=== PATIENT | female | born 1990 | race Caucasian/White ===

== ENCOUNTER 2017-04-07 05:45 | Day surgery (SDC) | payer BC, OTHER ==
[2017-04-04 15:50] VITALS: BMI 19.3
[2017-04-07 07:48] LABS: GLUCOSE,RANDOM 71 mg/dL (74-106)
[2017-04-07 07:49] LABS: ANION GAP 5 (8-16); CALCIUM 8.8 mg/dL (8.5-10.1); CO2 30 mmol/L (21-32); CREATININE 0.8 mg/dL (0.55-1.02)
[2017-04-07 07:50] LABS: ALK PHOS 62 U/L (45-117); BILIRUBIN,TOTAL 0.3 mg/dL (0.2-1.0); SGOT/AST 13 U/L (15-37); SGPT/ALT 27 U/L (12-78)
[2017-04-07 07:52] LABS: EOSINOPHIL 2.5 % (0-4.5); MCH 34.5 pg (25.7-33.7); MEAN CELL VOLUME 98.6 fl (80-96); MEAN PLT VOLUME 7.3 fl (7.5-11.1); NEUTROPHILS 32.6 % (42.8-82.8); PLATELET COUNT 267 K/MM3 (134-434); RDW 12.3 % (11.6-15.6); WHITE BLOOD COUNT 5.2 K/mm3 (4.0-10.0)
--- NOTE | 2017-04-07 07:54 | HP ---
Admitting History and Physical - Admission History of Present Illness: patient is a 26 y/o female with a past medical history of depression and anxiety. She reports struggling with depression within the past 15 years. Patient presents for ect, she has received in the past her last ECT was last week. She does report a recent admission to [facility] for depression in which she received 6 ects. Patient does report an improvement in depressive symptoms since starting ect. she denies any suicidal or homicidal ideation, visual or auditory hallucinations. She denies any recent illnesses. 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 Medications - Allergies Allergies/Adverse Reactions: Allergies Allergy/AdvReac Type Severity Reaction Status Date / Time Sulfa (Sulfonamide Allergy Severe Rash Verified 04/07/17 06:19 Antibiotics) - Home Medications Home Medications: Ambulatory Orders Acetylcysteine [V-Kznbzg-w-Cysteine] 600 mg PO DAILY 04/04/17 Brexpiprazole [Rexulti] 0.5 mg PO DAILY 04/04/17 Bupropion HCl [Wellbutrin Xl] 300 mg PO DAILY 04/04/17 Docusate Sodium [Colace -] 100 mg PO DAILY 04/04/17 Levomefolate/Algal Oil [Deplin-Algal Oil 15 mg Capsule] 1 each PO DAILY Lorazepam 1 mg PO DAILY PRN 04/04/17 Quetiapine Fumarate [Seroquel -] 50 mg PO HS 04/04/17 Family Disease History - Family Disease History Family Disease History: Heart Disease: Grandparent, Other: Father (hypertension ) Other Family History: cousins-->anxiety and depression Review of Systems - Review of Systems Constitutional: reports: No Symptoms Eyes: reports: No Symptoms HENT: reports: No Symptoms Neck: reports: No Symptoms Cardiovascular: reports: No Symptoms Respiratory: reports: No Symptoms Gastrointestinal: reports: No Symptoms Genitourinary: reports: No Symptoms Breasts: reports: No Symptoms Reported Musculoskeletal: reports: No Symptoms Integumentary: reports: No Symptoms Neurological: reports: No Symptoms Endocrine: reports: No Symptoms Hematology/Lymphatic: reports: No Symptoms Psychiatric: reports: Anxiety, Depression Physical Examination Vital Signs: Vital Signs Temperature 97.5 F L 04/07/17 06:20 Pulse Rate 56 L 04/07/17 06:20 Respiratory Rate 16 04/07/17 06:20 Blood Pressure 91/54 04/07/17 06:20 O2 Sat by Pulse Oximetry (%) 100 04/07/17 06:20 Constitutional: Yes: Well Nourished, No Distress, Calm Eyes: Yes: WNL, Conjunctiva Clear, EOM Intact HENT: Yes: WNL, Atraumatic, Normocephalic Neck: Yes: WNL, Supple, Trachea Midline Cardiovascular: Yes: WNL, Regular Rate and Rhythm, S1, S2 Respiratory: Yes: WNL, Regular, CTA Bilaterally Gastrointestinal: Yes: WNL, Normal Bowel Sounds, Soft ...Rectal Exam: Yes: Deferred Renal/: Yes: WNL Breast(s): Yes: WNL Musculoskeletal: Yes: WNL Extremities: Yes: WNL Edema: No Peripheral Pulses WNL: Yes Peripheral Pulses: Left Radial: 4+, Right Radial: 4+, Left Doralis Pedis: 3+, Right Dorsalis Pedis: 3+, Left Femoral: 3+, Right Femoral: 3+ Integumentary: Yes: Other (linear healed lacerations to billateral anterior distal upper extremities) Neurological: Yes: WNL, Alert, Oriented ...Motor Strength: WNL Psychiatric: Yes: WNL, Alert, Oriented Labs: CBC WBC 5.2 K/mm3 (4.0-10.0) 04/07/17 06:00 RBC 3.92 M/mm3 (3.60-5.2) 04/07/17 06:00 Hgb 13.5 GM/dL (10.7-15.3) 04/07/17 06:00 Hct 38.6 % (32.4-45.2) 04/07/17 06:00 MCV 98.6 fl (80-96) H 04/07/17 06:00 MCH 34.5 pg (25.7-33.7) H 04/07/17 06:00 MCHC 35.0 g/dl (32.0-36.0) 04/07/17 06:00 RDW 12.3 % (11.6-15.6) 04/07/17 06:00 Plt Count 267 K/MM3 (134-434) 04/07/17 06:00 MPV 7.3 fl (7.5-11.1) L 04/07/17 06:00 Neutrophils % 32.6 % (42.8-82.8) L 04/07/17 06:00 Lymphocytes % 55.6 % (8-40) H 04/07/17 06:00 Monocytes % 7.3 % (3.8-10.2) 04/07/17 06:00 Eosinophils % 2.5 % (0-4.5) 04/07/17 06:00 Basophils % 2.0 % (0-2.0) 04/07/17 06:00 CMP Sodium 141 mmol/L (136-145) 04/07/17 06:00 Potassium 3.5 mmol/L (3.5-5.1) 04/07/17 06:00 Chloride 106 mmol/L (98-107) 04/07/17 06:00 Carbon Dioxide 30 mmol/L (21-32) 04/07/17 06:00 Anion Gap 5 (8-16) L 04/07/17 06:00 BUN 13 mg/dL (7-18) 04/07/17 06:00 Creatinine 0.8 mg/dL (0.55-1.02) 04/07/17 06:00 Creat Clearance w eGFR > 60 (>60) 04/07/17 06:00 Random Glucose 71 mg/dL (74-106) L 04/07/17 06:00 Calcium 8.8 mg/dL (8.5-10.1) 04/07/17 06:00 Total Bilirubin 0.3 mg/dL (0.2-1.0) 04/07/17 06:00 AST 13 U/L (15-37) L 04/07/17 06:00 ALT 27 U/L (12-78) 04/07/17 06:00 Alkaline Phosphatase 62 U/L (45-117) 04/07/17 06:00 Total Protein 7.0 g/dl (6.4-8.2) 04/07/17 06:00 Albumin 4.0 g/dl (3.4-5.0) 04/07/17 06:00 Imaging - Results EKG: Image Reviewed, Other (nsr) Assessment/Plan patient is a 26 y/o female that presents for ect, labs and ekg reviewed pt is medically optimized for procedure informed consent, risks/benefits to be obtained by Dr Ames
[2017-04-07] MEDS ORDERED: KETAMINE HCL 500 MG/10 ML VIAL ONE (08:13)
[2017-04-07] MEDS ORDERED: ACETAMINOPHEN/CAFFEINE/BUTALBITAL 1 TAB ONE (08:56)
[2017-04-07 10:01] VITALS: TEMP 97.7
[2017-04-07 10:03] VITALS: BP 110/71; PULSE 66
[2017-04-07] MEDS ORDERED: ONDANSETRON 4 MG/2 ML VIAL IVPUSH PRN (11:20)
[2017-04-07] MEDS ORDERED: LACTATED RINGERS SOLUTION 1,000 ML IV SCH (11:30)
== END 2017-04-07 10:00 | disposition home or self-care (01) ==
LOC: FECT 05:45
PROVIDERS: ATTEND Psychiatry & Neurology Psychiatry
PROC: GZB4ZZZ Other Electroconvulsive Therapy (ICD-10-PCS; principal; 2017-04-07 07:30)
DX: F33.2 Major depressive disorder, recurrent severe without psychotic features (principal)
CPT/HCPCS: 36415; 80053; 84703; 85025; 90870; 94760

== ENCOUNTER 2017-04-09 05:42 | Day surgery (SDC) | payer BC ==
[2017-04-07 12:17] VITALS: BMI 19.3
[2017-04-09] MEDS ORDERED: KETAMINE HCL 500 MG/10 ML VIAL ONE (08:22)
[2017-04-09] MEDS ORDERED: ONDANSETRON 4 MG/2 ML VIAL IVPUSH PRN (08:59)
[2017-04-09] MEDS ORDERED: LACTATED RINGERS SOLUTION 1,000 ML IV SCH (09:00)
[2017-04-09 09:08] VITALS: TEMP 98.4
[2017-04-09 10:04] VITALS: BP 116/68; PULSE 80
== END 2017-04-09 10:05 | disposition home or self-care (01) ==
LOC: FECT 05:42
PROVIDERS: ATTEND Psychiatry & Neurology Psychiatry
PROC: GZB4ZZZ Other Electroconvulsive Therapy (ICD-10-PCS; principal; 2017-04-09 08:30)
DX: F33.2 Major depressive disorder, recurrent severe without psychotic features (principal)
CPT/HCPCS: 84703; 90870; 94760

== ENCOUNTER 2017-04-11 05:39 | Day surgery (SDC) | payer BC, OTHER ==
[2017-04-07 12:34] VITALS: BMI 19.3
[2017-04-11] MEDS ORDERED: KETAMINE HCL 500 MG/10 ML VIAL ONE (07:50)
[2017-04-11 09:56] VITALS: TEMP 97.8
[2017-04-11 09:58] VITALS: BP 121/71; PULSE 73
== END 2017-04-11 09:30 | disposition home or self-care (01) ==
LOC: FECT 05:39
PROVIDERS: ATTEND Psychiatry & Neurology Psychiatry
PROC: GZB4ZZZ Other Electroconvulsive Therapy (ICD-10-PCS; principal; 2017-04-11 07:45)
DX: F33.2 Major depressive disorder, recurrent severe without psychotic features (principal)
CPT/HCPCS: 90870; 94760

== ENCOUNTER 2017-04-14 05:41 | Day surgery (SDC) | payer BC, OTHER ==
[2017-04-09 07:50] VITALS: BMI 19.3
[2017-04-14] MEDS ORDERED: KETAMINE HCL 500 MG/10 ML VIAL ONE (07:22)
[2017-04-14 09:30] VITALS: BP 117/77; PULSE 70; TEMP 98.4
== END 2017-04-14 09:00 | disposition home or self-care (01) ==
LOC: FECT 05:41
PROVIDERS: ATTEND Psychiatry & Neurology Psychiatry
PROC: GZB4ZZZ Other Electroconvulsive Therapy (ICD-10-PCS; principal; 2017-04-14 07:45)
DX: F33.2 Major depressive disorder, recurrent severe without psychotic features (principal)
CPT/HCPCS: 84703; 90870; 94760

== ENCOUNTER 2017-04-16 05:43 | Day surgery (SDC) | payer BC, OTHER ==
[2017-04-09 11:22] VITALS: BMI 19.3
[2017-04-16] MEDS ORDERED: KETAMINE HCL 500 MG/10 ML VIAL ONE (07:01)
[2017-04-16] MEDS ORDERED: ONDANSETRON 4 MG/2 ML VIAL IVPUSH PRN (07:41)
[2017-04-16] MEDS ORDERED: ACETAMINOPHEN 325 MG TABLET (FP) PO PRN (07:41)
[2017-04-16] MEDS ORDERED: LACTATED RINGERS SOLUTION 1,000 ML IV SCH (07:45)
[2017-04-16 08:12] VITALS: TEMP 97.8
[2017-04-16 08:32] VITALS: BP 111/68; PULSE 64
== END 2017-04-16 08:35 | disposition home or self-care (01) ==
LOC: FECT 05:43
PROVIDERS: ATTEND Psychiatry & Neurology Psychiatry
PROC: GZB4ZZZ Other Electroconvulsive Therapy (ICD-10-PCS; principal; 2017-04-16 07:30)
DX: F33.2 Major depressive disorder, recurrent severe without psychotic features (principal)
CPT/HCPCS: 90870; 94760

== ENCOUNTER 2017-04-18 05:41 | Day surgery (SDC) | payer BC, OTHER ==
[2017-04-09 11:28] VITALS: BMI 19.3
[2017-04-18] MEDS ORDERED: KETAMINE HCL 500 MG/10 ML VIAL ONE (07:04)
[2017-04-18 08:30] VITALS: TEMP 98.3
[2017-04-18 08:36] VITALS: BP 120/71; PULSE 77
== END 2017-04-18 08:40 | disposition home or self-care (01) ==
LOC: FECT 05:41
PROVIDERS: ATTEND Psychiatry & Neurology Psychiatry
PROC: GZB4ZZZ Other Electroconvulsive Therapy (ICD-10-PCS; principal; 2017-04-18 07:30)
DX: F33.2 Major depressive disorder, recurrent severe without psychotic features (principal)
CPT/HCPCS: 84703; 90870; 94760

== ENCOUNTER 2017-05-02 05:35 | Day surgery (SDC) | payer OTHER, BC ==
[2017-05-02 06:38] VITALS: BMI 19.3
[2017-05-02 09:43] VITALS: TEMP 98.1
[2017-05-02 10:15] VITALS: BP 122/72; PULSE 66
== END 2017-05-02 10:25 | disposition home or self-care (01) ==
LOC: FECT 05:35
PROVIDERS: ATTEND Psychiatry & Neurology Psychiatry
PROC: GZB4ZZZ Other Electroconvulsive Therapy (ICD-10-PCS; principal; 2017-05-02)
DX: F33.2 Major depressive disorder, recurrent severe without psychotic features (principal)
CPT/HCPCS: 84703; 90870; 94760

== ENCOUNTER 2017-05-05 05:39 | Day surgery (SDC) | payer OTHER, BC ==
[2017-04-23 14:20] VITALS: BMI 19.3
[~2017-05-05 05:39] MED LIST: KETAMINE HCL 500 MG/10 ML VIAL ONE; LACTATED RINGERS SOLUTION 1,000 ML IV SCH
[2017-05-05] MEDS ORDERED: KETAMINE HCL 500 MG/10 ML VIAL ONE (07:17)
[2017-05-05 08:33] VITALS: TEMP 97.6
[2017-05-05 09:06] VITALS: BP 109/70; PULSE 60
[2017-05-05] MEDS ORDERED: ONDANSETRON 4 MG/2 ML VIAL IVPUSH PRN (12:24)
[2017-05-05] MEDS ORDERED: LACTATED RINGERS SOLUTION 1,000 ML IV SCH (12:30)
== END 2017-05-05 09:00 | disposition home or self-care (01) ==
LOC: FECT 05:39
PROVIDERS: ATTEND Psychiatry & Neurology Psychiatry
PROC: GZB4ZZZ Other Electroconvulsive Therapy (ICD-10-PCS; principal; 2017-05-05 08:00)
DX: F33.2 Major depressive disorder, recurrent severe without psychotic features (principal)
CPT/HCPCS: 90870; 94760

== ENCOUNTER 2017-05-09 05:45 | Day surgery (SDC) | payer OTHER, BC ==
[2017-05-06 11:14] VITALS: BMI 19.3
--- NOTE | 2017-05-09 07:15 | HP ---
Admitting History and Physical - Admission History of Present Illness: Patient is a 26 y/o female with a past medical history of depression and anxiety. Patient presents for ect, her last was 05/05/17. She reports feeling well. patient reports an improvement in depressive symptoms since starting ect. she denies any suicidal or homicidal ideation, visual or auditory hallucinations. She denies any recent illnesses or hospitalizations. She denies any recent medications changes and reports compliance with prescribed medications. 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 - Allergies Allergies/Adverse Reactions: Allergies Allergy/AdvReac Type Severity Reaction Status Date / Time Sulfa (Sulfonamide Allergy Severe Rash Verified 04/28/17 17:40 Antibiotics) - Home Medications Home Medications: Ambulatory Orders Acetylcysteine [V-Jbekgk-v-Cysteine] 600 mg PO DAILY 04/04/17 Brexpiprazole [Rexulti] 0.5 mg PO DAILY 04/04/17 Bupropion HCl [Wellbutrin Xl] 300 mg PO DAILY 04/04/17 Docusate Sodium [Colace -] 100 mg PO PRN 04/04/17 Levomefolate/Algal Oil [Deplin-Algal Oil 15 mg Capsule] 1 each PO DAILY Lorazepam 1 mg PO DAILY PRN 04/04/17 Quetiapine Fumarate [Seroquel -] 50 mg PO HS 04/04/17 Family Disease History - Family Disease History Family Disease History: Heart Disease: Grandparent, Other: Father Review of Systems - Review of Systems Constitutional: reports: No Symptoms Eyes: reports: No Symptoms HENT: reports: No Symptoms Neck: reports: No Symptoms Cardiovascular: reports: No Symptoms Respiratory: reports: No Symptoms Gastrointestinal: reports: No Symptoms Genitourinary: reports: No Symptoms Musculoskeletal: reports: No Symptoms Integumentary: reports: No Symptoms Neurological: reports: No Symptoms Endocrine: reports: No Symptoms Hematology/Lymphatic: reports: No Symptoms Psychiatric: reports: No Symptoms Physical Examination Constitutional: Yes: Well Nourished, No Distress, Calm Eyes: Yes: WNL, Conjunctiva Clear, EOM Intact HENT: Yes: WNL, Atraumatic, Normocephalic Neck: Yes: WNL, Supple, Trachea Midline Cardiovascular: Yes: WNL, Regular Rate and Rhythm, S1, S2 Respiratory: Yes: WNL, Regular, CTA Bilaterally Gastrointestinal: Yes: WNL, Normal Bowel Sounds, Soft ...Rectal Exam: Yes: Deferred Renal/: Yes: WNL Breast(s): Yes: WNL Musculoskeletal: Yes: WNL Extremities: Yes: WNL Edema: No Peripheral Pulses WNL: Yes Integumentary: Yes: WNL Neurological: Yes: WNL, Alert, Oriented ...Motor Strength: WNL Psychiatric: Yes: WNL, Alert, Oriented Labs: reviewed 04/07/17 Imaging - Results EKG: Other (nsr) Assessment/Plan pt is a 26 y/o female that presents for ect, labs and ekg reviewed pt is medically optimized for surgery.
[2017-05-09] MEDS ORDERED: KETAMINE HCL 500 MG/10 ML VIAL ONE (07:59)
[2017-05-09 09:12] VITALS: TEMP 97.7
[2017-05-09 10:22] VITALS: BP 120/68; PULSE 58
== END 2017-05-09 10:23 | disposition home or self-care (01) ==
LOC: FECT 05:45
PROVIDERS: ATTEND Psychiatry & Neurology Psychiatry
PROC: GZB4ZZZ Other Electroconvulsive Therapy (ICD-10-PCS; principal; 2017-05-09 08:30)
DX: F33.2 Major depressive disorder, recurrent severe without psychotic features (principal)
CPT/HCPCS: 84703; 90870; 94760

== ENCOUNTER 2017-05-13 05:40 | Day surgery (SDC) | payer OTHER, BC ==
[2017-05-09 12:04] VITALS: BMI 19.3
[2017-05-13] MEDS ORDERED: KETAMINE HCL 500 MG/10 ML VIAL ONE (07:00)
[2017-05-13 08:17] VITALS: TEMP 97.4
[2017-05-13 09:25] VITALS: BP 103/68; PULSE 64
[2017-05-13] MEDS ORDERED: ONDANSETRON 4 MG/2 ML VIAL IVPUSH PRN (10:10)
[2017-05-13] MEDS ORDERED: LACTATED RINGERS SOLUTION 1,000 ML IV SCH (10:15)
== END 2017-05-13 09:15 | disposition home or self-care (01) ==
LOC: FECT 05:40
PROVIDERS: ATTEND Psychiatry & Neurology Psychiatry
PROC: GZB4ZZZ Other Electroconvulsive Therapy (ICD-10-PCS; principal; 2017-05-13 08:00)
DX: F33.2 Major depressive disorder, recurrent severe without psychotic features (principal)
CPT/HCPCS: 84703; 90870; 94760

== ENCOUNTER 2017-05-16 05:57 | Day surgery (SDC) | payer OTHER, BC ==
[2017-05-06 11:19] VITALS: BMI 19.3
[2017-05-16] MEDS ORDERED: KETAMINE HCL 500 MG/10 ML VIAL ONE (07:26)
[2017-05-16 08:54] VITALS: TEMP 97.9
[2017-05-16] MEDS ORDERED: LACTATED RINGERS SOLUTION 1,000 ML IV SCH (09:00)
[2017-05-16 09:08] VITALS: BP 115/74; PULSE 61
== END 2017-05-16 09:10 | disposition home or self-care (01) ==
LOC: FECT 05:57
PROVIDERS: ATTEND Psychiatry & Neurology Psychiatry
PROC: GZB4ZZZ Other Electroconvulsive Therapy (ICD-10-PCS; principal; 2017-05-16 07:15)
DX: F33.2 Major depressive disorder, recurrent severe without psychotic features (principal)
CPT/HCPCS: 84703; 90870; 94760

== ENCOUNTER 2017-05-23 05:53 | Day surgery (SDC) | payer OTHER, BC ==
[2017-05-23 06:34] VITALS: TEMP 97.5
[2017-05-23] MEDS ORDERED: KETAMINE HCL 500 MG/10 ML VIAL ONE (07:15)
[2017-05-23 09:24] VITALS: BP 109/83; PULSE 84
== END 2017-05-23 09:00 | disposition home or self-care (01) ==
LOC: FECT 05:53
PROVIDERS: ATTEND Psychiatry & Neurology Psychiatry
PROC: GZB4ZZZ Other Electroconvulsive Therapy (ICD-10-PCS; principal; 2017-05-23 07:30)
DX: F33.2 Major depressive disorder, recurrent severe without psychotic features (principal)
CPT/HCPCS: 84703; 90870; 94760

== ENCOUNTER 2017-05-28 05:54 | Day surgery (SDC) | payer OTHER, BC ==
[2017-05-26 17:16] VITALS: BMI 19.3
[2017-05-28] MEDS ORDERED: KETAMINE HCL 500 MG/10 ML VIAL ONE (07:58)
[2017-05-28 10:08] VITALS: TEMP 98
[2017-05-28 10:10] VITALS: BP 116/75; PULSE 60
== END 2017-05-28 10:15 | disposition home or self-care (01) ==
LOC: FECT 05:54
PROVIDERS: ATTEND Psychiatry & Neurology Psychiatry
PROC: GZB4ZZZ Other Electroconvulsive Therapy (ICD-10-PCS; principal; 2017-05-28 08:15)
DX: F33.2 Major depressive disorder, recurrent severe without psychotic features (principal)
CPT/HCPCS: 84703; 90870; 94760

== ENCOUNTER 2017-06-13 05:43 | Day surgery (SDC) | payer OTHER, BC ==
--- NOTE | 2017-06-13 07:04 | HP ---
Admitting History and Physical - Admission History of Present Illness: Patient is a 27 y/o female with a past medical history of anxiety and depression. Patient presents for ect her last ect was 06/04/17. Patient reports an improvement in depressive symptoms since starting ect. She does report worsening of anxiety. 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 Patient denies any recent medication changes. She denies any recent illnesses or hospitalizations. She denies any suicidal or homicidal ideation, visual or auditory hallucinations. 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 - Allergies Allergies/Adverse Reactions: Allergies Allergy/AdvReac Type Severity Reaction Status Date / Time Sulfa (Sulfonamide Allergy Severe Rash Verified 04/28/17 17:40 Antibiotics) - Home Medications Home Medications: Ambulatory Orders Acetylcysteine [Y-Qgymzr-m-Cysteine] 600 mg PO DAILY 04/04/17 Brexpiprazole [Rexulti] 0.5 mg PO DAILY 04/04/17 Bupropion HCl [Wellbutrin Xl] 300 mg PO DAILY 04/04/17 Docusate Sodium [Colace -] 100 mg PO PRN 04/04/17 Levomefolate/Algal Oil [Deplin-Algal Oil 15 mg Capsule] 1 each PO DAILY Quetiapine Fumarate [Seroquel -] 50 mg PO HS 04/04/17 Omega3/Dha/Epa/Fish Oil/Vit D3 [Fish Oil-Vit D3 Softgel] 1 each PO DAILY Family Disease History - Family Disease History Family Disease History: Heart Disease: Grandparent, Other: Father Review of Systems - Review of Systems Constitutional: reports: No Symptoms Eyes: reports: No Symptoms HENT: reports: No Symptoms Neck: reports: No Symptoms Cardiovascular: reports: No Symptoms Respiratory: reports: No Symptoms Gastrointestinal: reports: No Symptoms Genitourinary: reports: No Symptoms Musculoskeletal: reports: No Symptoms Integumentary: reports: No Symptoms Neurological: reports: No Symptoms Endocrine: reports: No Symptoms Hematology/Lymphatic: reports: No Symptoms Psychiatric: reports: No Symptoms Physical Examination Constitutional: Yes: Well Nourished, No Distress, Calm Eyes: Yes: WNL, Conjunctiva Clear, EOM Intact HENT: Yes: WNL, Atraumatic, Normocephalic Neck: Yes: WNL, Supple, Trachea Midline Cardiovascular: Yes: WNL, Regular Rate and Rhythm, S1, S2 Respiratory: Yes: WNL, Regular, CTA Bilaterally Gastrointestinal: Yes: WNL, Normal Bowel Sounds, Soft ...Rectal Exam: Yes: Deferred Renal/: Yes: WNL Breast(s): Yes: WNL Musculoskeletal: Yes: WNL Extremities: Yes: WNL Edema: No Peripheral Pulses WNL: Yes Peripheral Pulses: Left Radial: 4+, Right Radial: 4+, Left Doralis Pedis: 3+, Right Dorsalis Pedis: 3+, Left Femoral: 3+, Right Femoral: 3+ Integumentary: Yes: WNL Neurological: Yes: WNL, Alert, Oriented ...Motor Strength: WNL Psychiatric: Yes: WNL, Alert, Oriented Labs: reviewed 03/24 Imaging - Results EKG: Image Reviewed, Other (nsr no ischemic changes) Assessment/Plan patient is a 27 y/o female that presents for ect, labs and ekg reviewed patient is medically optimized for procedure. informed consent, risks/benefits to be obtained by Dr Ames
[2017-06-13 07:37] VITALS: BMI 18.9
[2017-06-13] MEDS ORDERED: KETAMINE HCL 500 MG/10 ML VIAL ONE (08:33)
[2017-06-13 10:55] VITALS: TEMP 97.6
[2017-06-13 10:57] VITALS: BP 107/61; PULSE 86
== END 2017-06-13 10:30 | disposition home or self-care (01) ==
LOC: FECT 05:43
PROVIDERS: ATTEND Psychiatry & Neurology Psychiatry
PROC: GZB4ZZZ Other Electroconvulsive Therapy (ICD-10-PCS; principal; 2017-06-13 08:00)
DX: F33.2 Major depressive disorder, recurrent severe without psychotic features (principal)
CPT/HCPCS: 84703; 90870; 94760

== ENCOUNTER 2017-08-15 05:43 | Day surgery (SDC) | payer OTHER, BC ==
[2017-08-14 12:30] VITALS: BMI 18.9
--- NOTE | 2017-08-15 07:26 | HP ---
Admitting History and Physical - Admission History of Present Illness: patient is a 27 y/o female with a past medical history of depression, ocd and anxiety. Patient presents for ect, her last ect was 06/13/17. She was recently admitted to [facility] for 06/29/17 and discharged to 08/12/17 for anorexia. Patient reports feeling well. She reports compliance with prescribed medications. She denies any suicidal or homicidal ideation or visual or auditory hallucinations. 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 - Allergies Allergies/Adverse Reactions: Allergies Allergy/AdvReac Type Severity Reaction Status Date / Time Sulfa (Sulfonamide Allergy Severe Rash Verified 06/13/17 07:40 Antibiotics) - Home Medications Home Medications: Ambulatory Orders Acetylcysteine [C-Tfsatv-n-Cysteine] 600 mg PO DAILY 04/04/17 Brexpiprazole [Rexulti] 0.5 mg PO DAILY 04/04/17 Levomefolate/Algal Oil [Deplin-Algal Oil 15 mg Capsule] 1 each PO DAILY Quetiapine Fumarate [Seroquel -] 50 mg PO HS 04/04/17 Omega3/Dha/Epa/Fish Oil/Vit D3 [Fish Oil-Vit D3 Softgel] 1 each PO DAILY Desvenlafaxine Succinate [Pristiq ER] 25 mg PO DAILY 08/15/17 Hydroxyzine Pamoate [Vistaril -] 25 mg PO BID 08/15/17 Family Disease History - Family Disease History Family Disease History: Heart Disease: Grandparent, Other: Father Review of Systems - Review of Systems Constitutional: reports: No Symptoms Eyes: reports: No Symptoms HENT: reports: No Symptoms Neck: reports: No Symptoms Cardiovascular: reports: No Symptoms Respiratory: reports: No Symptoms Gastrointestinal: reports: No Symptoms Genitourinary: reports: No Symptoms Musculoskeletal: reports: No Symptoms Integumentary: reports: No Symptoms Neurological: reports: No Symptoms Endocrine: reports: No Symptoms Hematology/Lymphatic: reports: No Symptoms Psychiatric: reports: No Symptoms Physical Examination Constitutional: Yes: Well Nourished, No Distress, Calm, Thin Eyes: Yes: WNL, Conjunctiva Clear, EOM Intact HENT: Yes: WNL, Atraumatic, Normocephalic Neck: Yes: WNL, Supple, Trachea Midline Cardiovascular: Yes: WNL, Regular Rate and Rhythm, S1, S2 Respiratory: Yes: WNL, Regular, CTA Bilaterally Gastrointestinal: Yes: WNL, Normal Bowel Sounds, Soft ...Rectal Exam: Yes: Deferred Renal/: Yes: WNL Breast(s): Yes: WNL Musculoskeletal: Yes: WNL Extremities: Yes: WNL Edema: No Peripheral Pulses WNL: Yes Peripheral Pulses: Left Radial: 4+, Right Radial: 4+, Left Doralis Pedis: 3+, Right Dorsalis Pedis: 3+, Left Femoral: 3+, Right Femoral: 3+ Integumentary: Yes: WNL Neurological: Yes: WNL, Alert, Oriented ...Motor Strength: WNL Psychiatric: Yes: WNL, Alert, Oriented Labs: reviewed 06/24 Imaging - Results EKG: Image Reviewed, Other (nsr) Assessment/Plan patient is a 27 y/o female that present for ect, labs and ekg reviewed patient is medically optimized for procedure informed consent, risks/benefits to be obtained by Dr Ames.
[2017-08-15] MEDS ORDERED: LACTATED RINGERS SOLUTION 1,000 ML IV SCH (07:45)
[2017-08-15] MEDS ORDERED: KETAMINE HCL 500 MG/10 ML VIAL ONE (08:00)
[2017-08-15 09:40] VITALS: TEMP 97.5
[2017-08-15 09:41] VITALS: BP 115/66; PULSE 77
== END 2017-08-15 09:45 | disposition home or self-care (01) ==
LOC: FECT 05:43
PROVIDERS: ATTEND Psychiatry & Neurology Psychiatry
PROC: GZB4ZZZ Other Electroconvulsive Therapy (ICD-10-PCS; principal; 2017-08-15 07:30)
DX: F33.2 Major depressive disorder, recurrent severe without psychotic features (principal)
CPT/HCPCS: 84703; 90870; 94760

== ENCOUNTER 2017-08-22 05:44 | Day surgery (SDC) | payer OTHER, BC ==
[2017-08-20 07:18] VITALS: BMI 18.9
[2017-08-22] MEDS ORDERED: KETAMINE HCL 500 MG/10 ML VIAL ONE (07:41)
[2017-08-22] MEDS ORDERED: ACETAMINOPHEN 325 MG TABLET (FP) PO PRN (07:58)
[2017-08-22] MEDS ORDERED: LACTATED RINGERS SOLUTION 1,000 ML IV SCH (08:00)
[2017-08-22 09:02] VITALS: TEMP 98.7
[2017-08-22 09:12] VITALS: BP 114/74; PULSE 79
== END 2017-08-22 09:15 | disposition home or self-care (01) ==
LOC: FECT 05:44
PROVIDERS: ATTEND Psychiatry & Neurology Psychiatry
PROC: GZB4ZZZ Other Electroconvulsive Therapy (ICD-10-PCS; principal; 2017-08-22 07:45)
DX: F33.2 Major depressive disorder, recurrent severe without psychotic features (principal)
CPT/HCPCS: 84703; 90870; 94760

== ENCOUNTER 2017-08-29 05:59 | Day surgery (SDC) | payer OTHER, BC ==
[2017-08-29 06:51] VITALS: BMI 18.9
[2017-08-29] MEDS ORDERED: ESMOLOL HCL 100,000 MCG/10 ML VIAL ONE (07:17)
[2017-08-29] MEDS ORDERED: KETAMINE HCL 500 MG/10 ML VIAL ONE (07:17)
[2017-08-29] MEDS ORDERED: LACTATED RINGERS SOLUTION 1,000 ML IV SCH (08:15)
[2017-08-29 08:48] VITALS: TEMP 98.1
[2017-08-29 08:58] VITALS: BP 110/68; PULSE 82
== END 2017-08-29 09:00 | disposition home or self-care (01) ==
LOC: FECT 05:59
PROVIDERS: ATTEND Psychiatry & Neurology Psychiatry
PROC: GZB4ZZZ Other Electroconvulsive Therapy (ICD-10-PCS; principal; 2017-08-29 07:45)
DX: F33.2 Major depressive disorder, recurrent severe without psychotic features (principal)
CPT/HCPCS: 84703; 90870; 94760

== ENCOUNTER 2017-09-05 05:44 | Day surgery (SDC) | payer OTHER, BC ==
[2017-09-02 09:51] VITALS: BMI 18.9
[2017-09-05] MEDS ORDERED: KETAMINE HCL 500 MG/10 ML VIAL ONE (06:56)
[2017-09-05 09:27] VITALS: BP 120/78; PULSE 92; TEMP 98.4
== END 2017-09-05 08:30 | disposition home or self-care (01) ==
LOC: FECT 05:44
PROVIDERS: ATTEND Psychiatry & Neurology Psychiatry
PROC: GZB4ZZZ Other Electroconvulsive Therapy (ICD-10-PCS; principal; 2017-09-05 08:00)
DX: F33.2 Major depressive disorder, recurrent severe without psychotic features (principal)
CPT/HCPCS: 84703; 90870; 94760

== ENCOUNTER 2017-09-12 05:50 | Day surgery (SDC) | payer OTHER, BC ==
[2017-09-05 12:10] VITALS: BMI 18.9
[2017-09-12] MEDS ORDERED: KETAMINE HCL 500 MG/10 ML VIAL ONE (07:48)
[2017-09-12] MEDS ORDERED: ONDANSETRON 4 MG/2 ML VIAL IVPUSH PRN (08:27)
[2017-09-12] MEDS ORDERED: LACTATED RINGERS SOLUTION 1,000 ML IV SCH (08:30)
[2017-09-12 09:05] VITALS: TEMP 97.8
[2017-09-12 09:53] VITALS: BP 122/70; PULSE 86
== END 2017-09-12 09:57 | disposition home or self-care (01) ==
LOC: FECT 05:50
PROVIDERS: ATTEND Psychiatry & Neurology Psychiatry
PROC: GZB4ZZZ Other Electroconvulsive Therapy (ICD-10-PCS; principal; 2017-09-12 08:15)
DX: F33.2 Major depressive disorder, recurrent severe without psychotic features (principal)
CPT/HCPCS: 84703; 90870; 94760

== ENCOUNTER 2017-09-19 05:43 | Day surgery (SDC) | payer BC, OTHER ==
[2017-09-15 12:21] VITALS: BMI 18.9
--- NOTE | 2017-09-19 07:44 | HP ---
Admitting History and Physical - Admission History of Present Illness: Patient is a 27 y/o female with a past medical history of depression, ocd, and anxiety. Patient presents for ect, her last ect was 09/12/16. She reports a significant improvement in depressive symptoms since starting ect. She report ongoing feelings of anxiety. patient does report some short term memory since starting ect. She denies any sucidal or homicidal ideation, visual or auditory hallucinations. 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 Home Medications - Allergies Allergies/Adverse Reactions: Allergies Allergy/AdvReac Type Severity Reaction Status Date / Time Sulfa (Sulfonamide Allergy Severe Rash Verified 09/19/17 07:45 Antibiotics) - Home Medications Home Medications: Ambulatory Orders Acetylcysteine [A-Zsyzxi-y-Cysteine] 600 mg PO DAILY 04/04/17 Brexpiprazole [Rexulti] 0.5 mg PO DAILY 04/04/17 Levomefolate/Algal Oil [Deplin-Algal Oil 15 mg Capsule] 1 each PO DAILY Quetiapine Fumarate [Seroquel -] 50 mg PO HS 04/04/17 Omega3/Dha/Epa/Fish Oil/Vit D3 [Fish Oil-Vit D3 Softgel] 1 each PO DAILY Desvenlafaxine Succinate [Pristiq] 25 mg PO DAILY 08/15/17 Hydroxyzine Pamoate [Vistaril -] 25 mg PO BID 08/15/17 Family Disease History - Family Disease History Family Disease History: Heart Disease: Grandparent, Other: Father Review of Systems - Review of Systems Constitutional: reports: No Symptoms Eyes: reports: No Symptoms HENT: reports: No Symptoms Neck: reports: No Symptoms Cardiovascular: reports: No Symptoms Respiratory: reports: No Symptoms Gastrointestinal: reports: No Symptoms Genitourinary: reports: No Symptoms Musculoskeletal: reports: No Symptoms Integumentary: reports: No Symptoms Neurological: reports: Other (short term memory loss) Endocrine: reports: No Symptoms Hematology/Lymphatic: reports: No Symptoms Psychiatric: reports: No Symptoms Physical Examination Constitutional: Yes: Well Nourished, No Distress, Calm Eyes: Yes: WNL, Conjunctiva Clear, EOM Intact HENT: Yes: WNL, Atraumatic, Normocephalic Neck: Yes: WNL, Supple, Trachea Midline Cardiovascular: Yes: WNL, Regular Rate and Rhythm, S1, S2 Respiratory: Yes: WNL, Regular, CTA Bilaterally Gastrointestinal: Yes: WNL, Normal Bowel Sounds, Soft ...Rectal Exam: Yes: Deferred Renal/: Yes: WNL Breast(s): Yes: WNL Musculoskeletal: Yes: WNL Extremities: Yes: WNL Edema: No Peripheral Pulses WNL: Yes Peripheral Pulses: Left Radial: 4+, Right Radial: 4+, Left Doralis Pedis: 3+, Right Dorsalis Pedis: 3+, Left Femoral: 3+, Right Femoral: 3+ Integumentary: Yes: WNL Neurological: Yes: WNL, Alert, Oriented ...Motor Strength: WNL Psychiatric: Yes: WNL, Alert, Oriented Labs: reviewed 07/25 Imaging - Results EKG: Other (nsr) Assessment/Plan patient is a 27 y/o female that presents for ect, labs and ekg reviewed patient is medically optimized for procedure.
[2017-09-19 09:16] VITALS: TEMP 98
[2017-09-19 10:13] VITALS: BP 111/63; PULSE 82
== END 2017-09-19 09:50 | disposition home or self-care (01) ==
LOC: FECT 05:43
PROVIDERS: ATTEND Psychiatry & Neurology Psychiatry
PROC: GZB4ZZZ Other Electroconvulsive Therapy (ICD-10-PCS; principal; 2017-09-19 08:30)
DX: F33.2 Major depressive disorder, recurrent severe without psychotic features (principal)
CPT/HCPCS: 84703; 90870; 94760

== ENCOUNTER 2017-10-07 05:43 | Day surgery (SDC) | payer OTHER, BC ==
[2017-09-30 12:13] VITALS: BMI 18.9
[2017-10-07] MEDS ORDERED: KETAMINE HCL 500 MG/10 ML VIAL ONE (07:32)
[2017-10-07 08:38] VITALS: TEMP 98.5
[2017-10-07 09:06] VITALS: BP 118/70; PULSE 74
--- NOTE | 2017-10-07 12:28 | EKG ---
Test Reason : Blood Pressure : / mmHG Vent. Rate : 063 BPM Atrial Rate : 063 BPM P-R Int : 186 ms QRS Dur : 090 ms QT Int : 392 ms P-R-T Axes : 010 076 052 degrees QTc Int : 401 ms NORMAL SINUS RHYTHM NORMAL ECG NO PREVIOUS ECGS AVAILABLE Confirmed by MD Aidee, Francis ([id number]) on 10/07/2017 12:27:56 PM Referred By: Ab Ames Confirmed By:Francis Hoskins MD
== END 2017-10-07 09:15 | disposition home or self-care (01) ==
LOC: FECT 05:43
PROVIDERS: ATTEND Psychiatry & Neurology Psychiatry
PROC: GZB4ZZZ Other Electroconvulsive Therapy (ICD-10-PCS; principal; 2017-10-07 07:00)
DX: F33.2 Major depressive disorder, recurrent severe without psychotic features (principal)
CPT/HCPCS: 84703; 90870; 93005; 94760

== ENCOUNTER 2017-10-21 05:38 | Day surgery (SDC) | payer OTHER ==
[2017-10-14 11:52] VITALS: BMI 18.9
--- NOTE | 2017-10-21 07:05 | HP ---
Admitting History and Physical - Admission History of Present Illness: patient is a 27 y/o female with a past medical history of depression, anxiety, and ocd. Patient presents for ect, her last ect was 10/09/17. Patient reports worsening of depression within the past week. she does report suicidal ideation , however, she denies a plan. patient denies any homicidial ideation, visual or auditory hallucinations. patient does report compliance with prescribed medications. She denies any recent illnesses or hospitalizations. 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 Home Medications - Allergies Allergies/Adverse Reactions: Allergies Allergy/AdvReac Type Severity Reaction Status Date / Time Sulfa (Sulfonamide Allergy Severe Rash Verified 10/14/17 11:37 Antibiotics) - Home Medications Home Medications: Ambulatory Orders Brexpiprazole [Rexulti] 1 mg PO DAILY 04/04/17 Quetiapine Fumarate [Seroquel -] 50 mg PO HS 04/04/17 Desvenlafaxine Succinate [Pristiq] 50 mg PO DAILY 08/15/17 hydrOXYzine PAMOATE [Vistaril -] 25 mg PO BID 08/15/17 Family Disease History - Family Disease History Family Disease History: Heart Disease: Grandparent, Other: Father Review of Systems - Review of Systems Constitutional: reports: No Symptoms Eyes: reports: No Symptoms HENT: reports: No Symptoms Neck: reports: No Symptoms Cardiovascular: reports: No Symptoms Respiratory: reports: No Symptoms Gastrointestinal: reports: No Symptoms Genitourinary: reports: No Symptoms Musculoskeletal: reports: No Symptoms Integumentary: reports: No Symptoms Neurological: reports: No Symptoms Endocrine: reports: No Symptoms Hematology/Lymphatic: reports: No Symptoms Psychiatric: reports: No Symptoms Physical Examination Vital Signs: Vital Signs Temperature 98.0 F 10/21/17 06:22 Pulse Rate 70 10/21/17 06:22 Respiratory Rate 18 10/21/17 06:22 Blood Pressure 116/67 10/21/17 06:22 O2 Sat by Pulse Oximetry (%) 100 10/21/17 06:22 Constitutional: Yes: Well Nourished, No Distress, Calm Eyes: Yes: WNL, Conjunctiva Clear, EOM Intact HENT: Yes: WNL, Atraumatic, Normocephalic Neck: Yes: WNL, Supple, Trachea Midline Cardiovascular: Yes: WNL, Regular Rate and Rhythm, S1, S2 Respiratory: Yes: WNL, Regular, CTA Bilaterally Gastrointestinal: Yes: WNL, Normal Bowel Sounds, Soft ...Rectal Exam: Yes: Deferred Renal/: Yes: WNL Breast(s): Yes: WNL Musculoskeletal: Yes: WNL Extremities: Yes: WNL Edema: No Peripheral Pulses WNL: Yes Peripheral Pulses: Left Radial: 4+, Right Radial: 4+, Left Doralis Pedis: 3+, Right Dorsalis Pedis: 3+, Left Femoral: 3+, Right Femoral: 3+ Integumentary: Yes: Tattoos Neurological: Yes: WNL, Alert, Oriented ...Motor Strength: WNL Psychiatric: Yes: WNL, Alert, Oriented Labs: reviewed 07/25 Imaging - Results EKG: Image Reviewed, Other (nsr) Assessment/Plan patient is a 27 y/o female that presents for ect, labs and ekg reviewed patient is medically optimized for procedure informed consent, risks/benefits to be obtained by Dr Ames
[2017-10-21] MEDS ORDERED: KETAMINE HCL 500 MG/10 ML VIAL ONE (07:22)
[2017-10-21] MEDS ORDERED: ONDANSETRON 4 MG/2 ML VIAL IVPUSH PRN (07:26)
[2017-10-21] MEDS ORDERED: PROMETHAZINE HCL 25 MG/1 ML VIAL IVPUSH PRN (07:26)
[2017-10-21 08:42] VITALS: TEMP 98.3
[2017-10-21 08:54] VITALS: BP 121/77; PULSE 80
== END 2017-10-21 09:00 | disposition home or self-care (01) ==
LOC: FECT 05:38
PROVIDERS: ATTEND Psychiatry & Neurology Psychiatry
PROC: GZB4ZZZ Other Electroconvulsive Therapy (ICD-10-PCS; principal; 2017-10-21 07:00)
DX: F33.2 Major depressive disorder, recurrent severe without psychotic features (principal)
CPT/HCPCS: 84703; 90870; 94760

== ENCOUNTER 2017-11-04 05:40 | Day surgery (SDC) | payer OTHER ==
[2017-10-23 11:45] VITALS: BMI 18.9
[2017-11-04] MEDS ORDERED: KETAMINE HCL 500 MG/10 ML VIAL ONE (07:00)
[2017-11-04 09:13] VITALS: BP 118/69; PULSE 90; TEMP 99.1
[2017-11-04] MEDS ORDERED: ONDANSETRON 4 MG/2 ML VIAL IVPUSH PRN (10:14)
== END 2017-11-04 09:19 | disposition home or self-care (01) ==
LOC: FECT 05:40
PROVIDERS: ATTEND Psychiatry & Neurology Psychiatry
PROC: GZB4ZZZ Other Electroconvulsive Therapy (ICD-10-PCS; principal; 2017-11-04 07:00)
DX: F33.2 Major depressive disorder, recurrent severe without psychotic features (principal)
CPT/HCPCS: 84703; 90870; 94760

== ENCOUNTER 2017-11-25 05:42 | Day surgery (SDC) | payer OTHER ==
[2017-11-19 12:34] VITALS: BMI 18.9
[2017-11-25 06:58] VITALS: TEMP 98
--- NOTE | 2017-11-25 07:05 | HP ---
CHIEF COMPLAINT: depression PCP: Jose eFliz HISTORY OF PRESENT ILLNESS: This is a 27 year old with a long standing h/o depression, anxiety and OCD. She has had multiple suicide attempts. Pt feels that her depression has gotten "a little worse" since her last ECT on 11/04. She states that it seems to help for a few days and then wears off. She admits to suicidal ideation but has no specific plan to harm or kill herself. She attends psychotherapy twice weekly. Pt reports no physical health related issues currently. Had a cold a couple weeks ago. Recent Travel: none PAST MEDICAL HISTORY: depression, anxiety, OCD PAST SURGICAL HISTORY: ovarian cyst removal 10/2016 Social History: Smoking: pt denies Alcohol: pt denies current use Drugs: marijuana in past Allergies Sulfa (Sulfonamide Antibiotics) Allergy (Severe, Verified 10/14/17 11:37) Rash HOME MEDICATIONS: 3 Medication Instructions Recorded Brexpiprazole [Rexulti] 1 mg PO DAILY 04/04/17 Desvenlafaxine Succinate [Pristiq] 200 mg PO DAILY 08/15/17 Lorazepam 1 mg PO DAILY PRN 11/25/17 Quetiapine Fumarate [Seroquel -] 25 mg PO HS 11/25/17 REVIEW OF SYSTEMS CONSTITUTIONAL: Absent: fever, chills, diaphoresis, generalized weakness, malaise, loss of appetite, weight change HEENT: Absent: rhinorrhea, nasal congestion, throat pain, throat swelling, difficulty swallowing, mouth swelling, ear pain, eye pain, visual changes CARDIOVASCULAR: Absent: chest pain, syncope, palpitations, irregular heart rate, lightheadedness , peripheral edema RESPIRATORY: Absent: cough, shortness of breath, dyspnea with exertion, orthopnea, wheezing, stridor, hemoptysis GASTROINTESTINAL: Absent: abdominal pain, abdominal distension, nausea, vomiting, diarrhea, constipation, melena, hematochezia GENITOURINARY: Absent: dysuria, frequency, urgency, hesitancy, hematuria, flank pain, genital pain MUSCULOSKELETAL: Absent: myalgia, arthralgia, joint swelling, back pain, neck pain SKIN: Absent: rash, itching, pallor HEMATOLOGIC/IMMUNOLOGIC: Absent: easy bleeding, easy bruising, lymphadenopathy, frequent infections ENDOCRINE: Absent: unexplained weight gain, unexplained weight loss, heat intolerance, cold intolerance NEUROLOGIC: Absent: headache, focal weakness or paresthesias, dizziness, unsteady gait, seizure, mental status changes, bladder or bowel incontinence PSYCHIATRIC: depression, suicidal ideation Absent: anxiety, homicidal ideation, hallucinations. PHYSICAL EXAMINATION Vital Signs - 24 hr 3 11/25/17 06:50 Temperature 98.0 F Pulse Rate 75 Respiratory 18 Rate Blood Pressure 113/68 O2 Sat by Pulse 100 Oximetry (%) GENERAL: Awake, alert, and fully oriented, in no acute distress. HEAD: Normal with no signs of trauma. EYES: Pupils equal, round and reactive to light, extraocular movements intact, sclera anicteric, conjunctiva clear. No lid lag. EARS, NOSE, THROAT: Ears normal, nares patent, oropharynx clear without exudates. Moist mucous membranes. NECK: Normal range of motion, supple without lymphadenopathy, JVD, or masses. LUNGS: Breath sounds equal, clear to auscultation bilaterally. No wheezes, and no crackles. No accessory muscle use. HEART: Regular rate and rhythm, normal S1 and S2 without murmur, rub or gallop. ABDOMEN: Soft, nontender, not distended, normoactive bowel sounds, no guarding, no rebound, no masses. No hepatomegaly or splenomegaly. MUSCULOSKELETAL: Normal range of motion at all joints. No bony deformities or tenderness. No CVA tenderness. UPPER EXTREMITIES: 2+ pulses, warm, well-perfused. No cyanosis. No clubbing. No peripheral edema. LOWER EXTREMITIES: 2+ pulses, warm, well-perfused. No calf tenderness. No peripheral edema. NEUROLOGICAL: Cranial nerves II-XII intact. Normal speech. Normal gait. PSYCHIATRIC: Cooperative. Good eye contact. Appropriate mood and affect. SKIN: Warm, dry, normal turgor, no rashes or lesions noted, normal capillary refill. ECG 09/2017 reviewed, NSR, no ST/T wave changes Labs 03/2017 reviewed ASSESSMENT/PLAN: 27yF with PMH depression, OCD, anxiety presented to [facility] for planned routine ECT. She is medically optimized for her ECT with no contraindications. Pt encouraged to continue with her other treatments including medications and psychotherapy. informed consent, risks/benefits to be obtained by Dr Ames Hospitalist Screening - Colonoscopy Questionnaire Colonoscopy Questionnaire: Colonoscopy Questionnaire
[2017-11-25] MEDS ORDERED: KETAMINE HCL 500 MG/10 ML VIAL ONE (07:24)
[2017-11-25] MEDS ORDERED: ONDANSETRON 4 MG/2 ML VIAL IVPUSH PRN (08:54)
[2017-11-25 09:09] VITALS: BP 103/65; PULSE 88
== END 2017-11-25 09:10 | disposition home or self-care (01) ==
LOC: FECT 05:42
PROVIDERS: ATTEND Psychiatry & Neurology Psychiatry
PROC: GZB4ZZZ Other Electroconvulsive Therapy (ICD-10-PCS; principal; 2017-11-25 07:15)
DX: F33.2 Major depressive disorder, recurrent severe without psychotic features (principal)
CPT/HCPCS: 84703; 90870; 94760

== ENCOUNTER 2017-12-09 05:47 | Day surgery (SDC) | payer BC, OTHER ==
[2017-12-09 06:46] VITALS: BMI 18.9
[2017-12-09] MEDS ORDERED: KETAMINE HCL 500 MG/10 ML VIAL ONE (07:26)
[2017-12-09] MEDS ORDERED: oxyCODONE HCL 5 MG TABLET PO PRN (08:05)
[2017-12-09 08:50] VITALS: TEMP 98.1
[2017-12-09 09:14] VITALS: BP 112/67; PULSE 82
== END 2017-12-09 09:35 | disposition home or self-care (01) ==
LOC: FECT 05:47
PROVIDERS: ATTEND Psychiatry & Neurology Psychiatry
PROC: GZB4ZZZ Other Electroconvulsive Therapy (ICD-10-PCS; principal; 2017-12-09 07:30)
DX: F33.2 Major depressive disorder, recurrent severe without psychotic features (principal)
CPT/HCPCS: 84703; 90870; 94760